=== PATIENT | female | born 1990 | race African-American/Black ===

== ENCOUNTER 2020-03-23 14:32 | Day surgery (SDC) | payer SELFPAY ==
[2020-03-23] MEDS ORDERED: hydrALAZINE 20 MG/ML VIAL SLOW IVP PRN (14:54)
--- NOTE | 2020-03-23 15:20 | PDOC.BPN ---
- Brief Progress Note OBGYN Patient seen at beside. See Dictated H&P. No evidence of by bedside sono. [facility] [place] noted
--- NOTE | 2020-03-23 15:40 | HP ---
TIME OF EVALUATION: At bedside, was roughly 1500 hours, it is now 1515 hours. LOCATION: Triage A in Labor and Delivery. REASON FOR EVALUATION: "Possible contractions." This patient was evaluated by Dr. Brown in [facility] ER, who called me and told me that this patient was roughly 26 weeks with possible contractions. Per the transfer note, Dr. Brown performed a cervical evaluation by sterile spec exam and did not find any fluid in the vagina and felt that the cervix was visually "closed." She was sent here for monitoring at [facility]. Does not have an obstetrical unit. HISTORY OF PRESENT ILLNESS: This is a 29-year-old, G6, P4, AB 1, who states that she was receiving care at [facility]. She states that she had regular followup and has now come here, but has not established care here. She states that she has had no complications with this . She states that she has had irregular "contractions," but denies vaginal bleeding, leakage of fluid , and she does state that she has had regular movement. She denies any COVID contacts. REVIEW OF SYSTEMS: Complete review of systems was analyzed and is otherwise negative unless specified in the HPI. Specifically, there is no fever, cough, chills, strange rashes, vaginal bleeding, change in movement, headache, right upper quadrant pain, or visual changes. PAST MEDICAL HISTORY: Significant for bronchitis, but she states that it is stable. She does not take regular medications for this. MEDICATIONS: None. PAST SURGICAL HISTORY: Noncontributory. OB HISTORY: She states that her first child was born at "6-1/2 months." Second child was born "3 weeks early." The last was born "1 week early." She also had a miscarriage, which was uncomplicated. ALLERGIES: NONE. SOCIAL HISTORY: Positive for tobacco, but she denies alcohol use or drug use. PHYSICAL EXAMINATION: VITAL SIGNS: Stable. She is afebrile, pulse is in the 80s to 90s, and she is in no acute distress clinically. ABDOMINAL EXAM: Soft and nontender and there is no fundus palpable. There is also no rigidity or rebound to the abdomen. I arrived at the same time that our cable installation technician (Padmini) was arriving. I was present when the patient had the transabdominal ultrasound revealed a non- (gynecological) uterus. Uterus was under the pelvic bone and had no evidence of intrauterine . I did recommend that Padmini scanned the abdomen to make sure that there was no other abnormality like the possibility of a bicornuate uterus with the child in the other horn. This was found to be negative. PELVIC: Exam was deferred as there is no current evidence of . ASSESSMENT: This is a 29-year-old multigravida with possible psychogenic . The uterus does not reveal any evidence of , and it was felt at this time that she is not . PLAN: 1. I have explained to the patient these findings and patient seems confused. 2. I have ordered a beta hCG just to make sure we were not missing anything else. 3. Assuming that this is negative, we will call Social Work to see if any input and we will likely release her home. May return to ED here for eval of nonacute "abdominal pain". Job ID: [id number] [facility]
--- NOTE | 2020-03-23 15:46 | ULT ---
ULTRASOUND PELVIC DOPPLER DUPLEX: DATE: 03/23/2020 HISTORY: 31-year-old female reportedly 26 weeks in possible labor. No heart tones detected. TECHNIQUE: Transabdominal transducer used to visualize intrapelvic contents with grayscale, color-flow, and spec tral analysis. No endovaginal transducer used. FINDINGS: Uterus is normal in size and shape. Endometrial stripe is 2.3 cm (23 mm). There is no intrauterine gestational sac. No uterine leiomyoma is identified. Bilateral ovaries are normal in size. Blood flow is demonstrated in both ovaries. No ovarian cyst 2 cm or larger is identified. No free fluid is identified in the cul-de-sac. IMPRESSION: 1) no intrauterine gestational sac identified on transabdominal pelvic ultrasound. 2) thickened, 23 mm endometrial stripe.
[2020-03-23 16:16] LABS: BHCG - Serum Negative (NEGATIVE); Pregs Control Background? CLEAR/WHITE (CLR/WHITE); Pregs Control Bar Appear? YES (CONTROL BAR)
--- NOTE | 2020-03-23 16:21 | PDOC.BPN ---
- Brief Progress Note Preg test neg Sending to ED for abdominal eval per her request
== END 2020-03-23 16:34 | disposition home or self-care (01) ==
LOC: L&D/OP 14:32
PROVIDERS: ATTEND Obstetrics & Gynecology
DX: R10.9 Unspecified abdominal pain (principal)
CPT/HCPCS: 76856; 84703; 93976; 99283

== ENCOUNTER 2020-03-23 16:35 | Emergency (ER) | payer SELFPAY ==
[~2020-03-23 16:35] MED LIST: Iopamidol-370 76% 500 ML 1 ML ONE
[2020-03-23] MEDS ORDERED: Ketorolac Tromethamine 30 MG/ML VIAL ONE (17:31)
[2020-03-23] MEDS ORDERED: Ondansetron PF 4 MG/2 ML Vial ONE (17:31)
[2020-03-23 17:48] LABS: #Eosinphils 0.1 thou/uL (0.0-0.7); #Lymphocytes 2.3 thou/uL (1.20-3.40); #Monocytes 0.6 thou/uL (0.11-0.59); #Neutrophils 5.5 thou/uL (1.40-6.50); %Basophils 0.1 % (0.0-1.0); %Eosinophils 1.4 % (0.0-10.0); %Lymphocytes 27.1 % (21.0-51.0); %Monocytes 7.3 % (0.0-10.0); %Neutrophils 64.1 % (42.0-75.0); Hemoglobin 11.8 g/dL (12.0-16.0); Mean Corpuscular HGB CONC 32.9 g/dL (32.0-36.0); Mean Corpuscular Hemoglobin 30.5 pg (27.0-31.0); Mean Corpuscular Volume 92.7 fL (78.0-98.0); Mean Platelet Volume 7.4 fL (7.4-10.4); Platelet Count 321 thou/uL (130-400); RBC Distribution Width 14.1 % (11.5-14.5); Red Blood Cell (RBC) Count 3.88 mill/uL (4.20-5.40); White Blood Cell (WBC) Count 8.5 thou/uL (4.8-10.8)
[2020-03-23 18:08] LABS: ALT (SGPT) 13 U/L (8-55); AST (SGOT) 13 U/L (5-34); Albumin 3.4 g/dL (3.5-5.0); Alkaline Phosphatase 74 U/L (40-110); Anion Gap 12 mmol/L (10-20); BUN (Urea Nitrogen) 11 mg/dL (7.0-18.7); Bilirubin, Total 0.3 mg/dL (0.2-1.2); Calc. Creatinine Clearance 0 mL/min (70-130); Calcium 8.2 mg/dL (7.8-10.44); Carbon Dioxide 24 mmol/L (22-29); Chloride 107 mmol/L (98-107); Estimated GFR-MDRD Greater than 90; Globulin 3.3 g/dL (2.4-3.5); Glucose 77 mg/dL (70-105); Lipase 18 U/L (8-78); Potassium 3.7 mmol/L (3.5-5.1); Protein, Total 6.7 g/dL (6.0-8.3); Sodium 139 mmol/L (136-145)
--- NOTE | 2020-03-23 18:10 | CT ---
CT ABDOMEN AND PELVIS WITH IV CONTRAST: 03/23/20 Oral contrast is not given. INDICATIONS: Abdominal pain. No comparison. FINDINGS: The lung bases are clear. Liver, spleen and pancreas unremarkable. Adrenal glands and kidneys unremarkable. Small bowel loops normal caliber. Bowel is suboptimally aldo luated due to lack of enteric contrast and no significant intra-abdominal fat plane. The appendix is not definitely identified; however, there is no evidence of appendicitis seen. Colon is unremarkable. Images through the pelvis show unremarkable uterus. Adnexal are mildly prominent. There is small to m oderate amount of free fluid in the cul-de-sac. Patient reportedly has a negative test. Osseous structures unremarkable. No evidence of adenopathy. IMPRESSION: Small amount of free fluid in the cul-de-sac. Otherwise no acute process identified. POS: [facility]
[2020-03-23 19:46] LABS: Bacteria/HPF None Seen HPF (None Seen); Bilirubin Negative (Negative); Blood, Urine 3+ (Negative); Clarity Clear (Clear); Glucose, Urine (Dipstick) Normal (Negative); Ketone, Urine Negative (Negative); Leukocyte Negative Leu/uL (Negative); Nitrite Negative (Negative); Protein, Urine (Dipstick) 10 mg/dL (Neg-Trace); Squamous Epithelial 0-3 HPF (0-3); Urobilinogen Normal mg/dL (Less than 2); WBC/HPF 0-3 HPF (0-3); pH, Urine 6.5 (5.0-9.0)
[2020-03-23 19:48] LABS: Specific Gravity, Urine Greater than 1.060 (1.002-1.036)
== END 2020-03-23 20:24 | disposition home or self-care (01) ==
LOC: ERS 16:35
DX: R10.32 Left lower quadrant pain (principal); F17.210 Nicotine dependence, cigarettes, uncomplicated
CPT/HCPCS: 36415; 74177; 80053; 81003; 81015; 83690; 85025; 96374; 96375; J1885; J2405; Q9967